=== PATIENT | female | born 1945 | race Caucasian/White ===

== ENCOUNTER 2021-05-17 19:19 | Observation (INO) | payer OTHER, SELFPAY ==
[~2021-05-17] VITALS: Ht 170.2 cm; Wt 95.3 kg
--- NOTE | 2021-05-17 21:30 | NUR ---
pt lying compfortable in bed.all vss. no high blood pressure at the moment. x2 side rails up for safety
[2021-05-17 21:32] VITALS: BP 120/45
[2021-05-17 22:02] LABS: BASOPHILS # (AUTO) 0.1 K/uL (0.00-0.22); BASOPHILS % (AUTO) 0.6 % (0.0-2.0); EOSINOPHILS # (AUTO) 0.3 K/uL (0-0.4); EOSINOPHILS % (AUTO) 2.7 % (0.0-4.0); HEMATOCRIT 29.3 % (36-48); HEMOGLOBIN 9.7 g/dL (12.0-16.0); LYMPHOCYTES # (AUTO) 1.6 K/uL (2.5-16.5); LYMPHOCYTES % (AUTO) 13.3 % (20.5-51.1); MEAN CORPUSCULAR HEMOGLOBIN 33 pg (27-31); MEAN CORPUSCULAR HGB CONC 33 g/dL (33-37); MEAN CORPUSCULAR VOLUME 100.3 fL (80-94); MONOCYTES # (AUTO) 1.1 K/uL (0.8-1.0); MONOCYTES % (AUTO) 9.4 % (1.7-9.3); NEUTROPHILS # (AUTO) 8.9 K/uL (1.8-7.7); PLATELET COUNT (AUTO) 418 K/uL (140-450); RED BLOOD CELL COUNT(AUTO) 2.92 MIL/uL (4.20-5.40); RED CELL DISTRIBUTION WIDTH 15.8 % (11.6-13.7)
--- NOTE | 2021-05-17 22:07 | NUR ---
given report to michael. kenney to continue care
[2021-05-17 22:25] LABS: ALBUMIN 3.5 g/dL (3.4-5.0); ANION GAP 20.9 (8-16); ASPARTATE AMINOTRANSFERASE 16 U/L (15-37); CARBON DIOXIDE 25.2 mmol/L (21-32); CHLORIDE 95 mmol/L (98-107); GLUCOSE 261 mg/dL (74-106); POTASSIUM 5.1 mmol/L (3.5-5.1); SODIUM SERUM 136 mmol/L (136-145); TOTAL BILIRUBIN 0.3 mg/dL (0.0-1.0)
[2021-05-17] MEDS ORDERED: HYDROcodone/APAP 5/325 MG 1 TAB TAB PO ONE (22:25)
--- NOTE | 2021-05-17 22:30 | NUR ---
PT BIBA FOER CLOGGED DIALYSIS SHUNT
[2021-05-17 22:36] LABS: CREATININE 7.8 mg/dL (0.6-1.3); UREA NITROGEN, BLOOD 78 mg/dL (7-18)
--- NOTE | 2021-05-18 00:23 | NUR ---
PT SLEEPING IN BED. 0/10 PAIN AT THIS TIME. EVEN CHEST RISE AND FALL. NO DISTRESS
--- NOTE | 2021-05-18 03:12 | NUR ---
PT SLEEPING IN BED. BOTH SIDE RAILS UP FOR SAFETY
--- NOTE | 2021-05-18 07:21 | NUR ---
ASSUMED CARE AT THIS TIME. PT MOVED TO ER BED 7, CONNECTED TO [facility]. PT DENIES PAIN AT THIS TIME. WILL CONTINUE TO MONITOR
[2021-05-18] MEDS ORDERED: MORPHINE SULFATE 4 MG/ML SYR IVP PRN (09:05)
[2021-05-18] MEDS ORDERED: KCL 20 MEQ/WATER INJ PREMIX 200 ML IV PRN (09:05)
[2021-05-18] MEDS ORDERED: MAGNESIUM OXIDE 400 MG TAB PO PRN (09:05)
[2021-05-18] MEDS ORDERED: ACETAMINOPHEN 325 MG TAB PO PRN (09:05)
[2021-05-18] MEDS ORDERED: MAG SULF 2000 MG/WATER PREMIX 50 ML IV PRN (09:05)
[2021-05-18] MEDS ORDERED: POTASSIUM CHLORIDE 10 MEQ TABER PO PRN (09:05)
[2021-05-18] MEDS ORDERED: SODIUM POLYSTYRENE 15 GM/60 ML UDBTL PO SCH (10:40)
--- NOTE | 2021-05-18 10:47 | NUR ---
PT RESTING COMFORTABLY IN BED. DENIES ANY COMPLAINTS AT THIS TIME. PT PROVIDED WITH BLANKET FOR COMFORT, WILL CONTINUE TO MONITOR
--- NOTE | 2021-05-18 11:47 | NUR ---
Report and continuation of care received from YASIR Dickinson
--- NOTE | 2021-05-18 11:47 | NUR ---
REPORT GIVEN TO BEN RN, TRANSFER OF CARE AT THIS TIME.
--- NOTE | 2021-05-18 12:33 | NUR ---
PATIENT HAS BEEN SCREENED AND CATEGORIZED MODERATE NUTRITION RISK. PATIENT WILL BE SEEN WITHIN 3-5 DAYS OF ADMISSION. [address]
--- NOTE | 2021-05-18 14:26 | NUR ---
Dr. Sanchez is evaluating pt at bedside
--- NOTE | 2021-05-18 14:30 | NUR ---
OR team at bedside for pt transport
[2021-05-18] MEDS ORDERED: BUPIVACAINE-MPF/EPI 0.25% 30 ML VIAL INJ ONE (14:35)
[2021-05-18] MEDS ORDERED: LIDOCAINE 1% 500 MG/50 ML VIAL ONE (14:35)
[2021-05-18] MEDS ORDERED: MIDAZOLAM 2 MG/2 ML VIAL ONE (15:08)
[2021-05-18] MEDS ORDERED: ceFAZolin 1,000 MG VIAL ONE (15:08)
[2021-05-18] MEDS ORDERED: fentaNYL citrate 0.05 MG/ML VIAL ONE (15:16)
[2021-05-18] MEDS ORDERED: METOCLOPRAMIDE 10 MG/2 ML INJ VIAL ONE (15:44)
[2021-05-18] MEDS ORDERED: ONDANSETRON 4 MG/2 ML VIAL ONE (15:44)
--- NOTE | 2021-05-18 17:25 | NUR ---
PATIENT REPORT RECEIVED FROM OR, PT BP 157/71 , HR 80 , 02% 97. PATIENT CALLED FAMILY AND UPDATED AT THIS TIME . ALL SAFETY MEASURES ARE IN PLACE. PATIENT ORIENTED TO ROOM , CALL LIGHT BED CONTROLS AND HOSPITAL POLICIES
--- NOTE | 2021-05-18 18:38 | NUR ---
PATIENT COMPLAINS OF HUNGER, MEAL TRAY PICKED UP FROM NUTRITION , PT ASSISTED WITH CUTTING FOOD TOLERATING WELL .
--- NOTE | 2021-05-18 19:16 | NUR ---
PATIENT CHANGED PATIENT HAD LARGE BM ,. PT TOLERATED WELL NO S/SX OF DISTRESS AT THIS TIDE. ALL SAFETY MEASURES ARE IN PLACE
--- NOTE | 2021-05-18 19:30 | NUR ---
BEDSIDE REPORT GIVEN TO ELECTRONIC ORGAN TECHNICIAN NURSE FOR CONTINUITY OF CARE. PATIENT IN STABLE CONDITION.
--- NOTE | 2021-05-18 19:31 | NUR ---
RECEIVED REPORT FORM MORNING SHIFT NURSE FOR CONTINUITY OF CARE. PATIENT IS STABLE IN BED. A&OX3. SW[place] SPEAKING ONLY. VERBALLY RESPONSIVE AND ABLE TO COMMUNICATE NEEDS. DENIES PAIN AT THIS TIME. BREATHING EVEN AND UNLABORED. ON ROOM AIR WITH NO APPARENT S/SX OF ACUTE DISTRESS. IV SITE TO THE 20G INTACT/PATENT SL. SKIN IS INTACT. PLAN OF CARE AND WHITE COMMUNICATION BOARD UPDATED. BED IN LOW/LOCKED POSITION. CALL LIGHT WITHIN REACH. WILL CONTINUE TO MONITOR.
[2021-05-18 20:00] VITALS: BP 135/71
--- NOTE | 2021-05-18 20:00 | NUR ---
Patient's Plan of Care was discussed and reviewed with FIELD ADMINISTRATOR: MIRNA HUANG
--- NOTE | 2021-05-18 21:30 | NUR ---
ADMINISTERED SCHEDULED MEDICATIONS PER MD ORDER. TOLERATED WELL. NO ADVERSE REACTION NOTED. PATIENT DENIES PAIN. RESPIRATIONS EVEN AND UNLABORED WITH NO APPARENT S/SX OF ACUTE DISTRESS. WHITE COMMUNICATION BOARD UPDATED. ALL SAFETY MEASURES IN PLACE. CALL LIGHT WITHIN REACH. ALL SAFETY MEASURES IN PLACE. CALL LIGHT WITHIN REACH.
--- NOTE | 2021-05-19 01:30 | NUR ---
ROUNDED ON PATIENT. STABLE AND ASLEEP WITH HOB ELEVATED AT 45 DEGREES. CHEST IS RISING AND FALLING. RESPIRATIONS EVEN AND UNLABORED WITH NO APPARENT S/SX OF ACUTE DISTRESS. WHITE COMMUNICATION BOARD UPDATED. ALL SAFETY MEASURES IN PLACE. CALL LIGHT WITHIN REACH. WILL CONTINUE TO MONITOR.
[2021-05-19 04:00] VITALS: BP 128/68
--- NOTE | 2021-05-19 07:10 | NUR ---
RECEIVED ENDORSEMENT FROM SEISMOGRAPH OBSERVER NURSE FOR CONTINUITY OF CARE.
--- NOTE | 2021-05-19 07:10 | NUR ---
ENDORSED PATIENT TO MORNING SHIFT NURSE FOR CONTINUITY OF CARE. PATIENT IS STABLE.
--- NOTE | 2021-05-19 08:15 | NUR ---
N AT BED SIDE AND CHECKED AND ASSESS PT.
[2021-05-19 08:18] LABS: ALBUMIN 3.5 g/dL (3.4-5.0); ASPARTATE AMINOTRANSFERASE 20 U/L (15-37); CARBON DIOXIDE 21.7 mmol/L (21-32); CHLORIDE 96 mmol/L (98-107); GLUCOSE 124 mg/dL (74-106); MAGNESIUM 2.6 mg/dL (1.8-2.4); POTASSIUM 5.7 mmol/L (3.5-5.1); SODIUM SERUM 137 mmol/L (136-145); TOTAL BILIRUBIN 0.3 mg/dL (0.0-1.0)
[2021-05-19 08:21] LABS: BASOPHILS # (AUTO) 0.1 K/uL (0.00-0.22); BASOPHILS % (AUTO) 0.7 % (0.0-2.0); EOSINOPHILS # (AUTO) 0.4 K/uL (0-0.4); EOSINOPHILS % (AUTO) 2.9 % (0.0-4.0); HEMATOCRIT 28.9 % (36-48); HEMOGLOBIN 9.6 g/dL (12.0-16.0); LYMPHOCYTES # (AUTO) 1.6 K/uL (2.5-16.5); MEAN CORPUSCULAR HEMOGLOBIN 33 pg (27-31); MEAN CORPUSCULAR HGB CONC 33 g/dL (33-37); MEAN CORPUSCULAR VOLUME 98.9 fL (80-94); MONOCYTES # (AUTO) 1.3 K/uL (0.8-1.0); MONOCYTES % (AUTO) 10.6 % (1.7-9.3); NEUTROPHILS # (AUTO) 9.1 K/uL (1.8-7.7); NEUTROPHILS % (AUTO) 72.8 % (42.2-75.2); PLATELET COUNT (AUTO) 477 K/uL (140-450); RED BLOOD CELL COUNT(AUTO) 2.92 MIL/uL (4.20-5.40); RED CELL DISTRIBUTION WIDTH 15.7 % (11.6-13.7); WHITE BLOOD COUNT (AUTO) 12.5 K/uL (4.8-10.8)
[2021-05-19] MEDS: DOCUSATE SODIUM 100 MG GELCAP PO SCH (08:38)
--- NOTE | 2021-05-19 08:42 | NUR ---
COMPLAIN OF PAIN MEDICATION.
[2021-05-19 09:38] LABS: CREATININE 9.7 mg/dL (0.6-1.3); UREA NITROGEN, BLOOD 97 mg/dL (7-18)
--- NOTE | 2021-05-19 09:40 | NUR ---
RECEIVED ABNORMAL LAB FOR BUN OF 97 AND CR AT 9.7 LEFT FMESSAGE TO .
[2021-05-19 12:00] VITALS: BP 156/81
--- NOTE | 2021-05-19 12:00 | NUR ---
PT ON BED STILL WITH DIALYSIS NURSE NO COMPLAIN OF ANY DISCOMFORT.
--- NOTE | 2021-05-19 13:23 | NUR ---
DIALYSIS NURSE AT BED SIDE PT. ALERT ON STABLE CONDITION.
--- NOTE | 2021-05-19 15:20 | NUR ---
PT ON BED WITH DIALYSIS NURSE AT BED SIDE. ON STABLE CONDITION.
--- NOTE | 2021-05-19 16:38 | NUR ---
DIALYSIS DONE DIALYZED WITH 2L. PT ON STABLE CONDITION NO COMPLAIN OF PAIN OR SANY DISCOMFORT.
[2021-05-19] MEDS: HYDROcodone/APAP 5/325 MG 1 TAB TAB PO PRN (18:37)
--- NOTE | 2021-05-19 18:43 | NUR ---
PT COMPLAIN OF PAIN MEDICATED ORDERED. DAUGHTER AT BED SIDE. PT. EATING DINNER TOLERATED WELL.
--- NOTE | 2021-05-19 19:15 | NUR ---
ENDORSE TO FLOOR ASSOCIATE NURSE FOR CONTINUITY OF CARE.
--- NOTE | 2021-05-19 19:16 | NUR ---
RECEIVED REPORT FORM MORNING SHIFT NURSE FOR CONTINUITY OF CARE. PATIENT IS STABLE IN BED. A&OX3. [place]ALIAN SPEAKING ONLY. VERBALLY RESPONSIVE AND ABLE TO COMMUNICATE NEEDS. DENIES PAIN AT THIS TIME. BREATHING EVEN AND UNLABORED. ON ROOM AIR WITH NO APPARENT S/SX OF ACUTE DISTRESS. IV SITE TO THE 20G INTACT/PATENT SL. SKIN IS INTACT. PLAN OF CARE AND WHITE COMMUNICATION BOARD UPDATED. BED IN LOW/LOCKED POSITION. CALL LIGHT WITHIN REACH. WILL CONTINUE TO MONITOR.
--- NOTE | 2021-05-19 19:45 | NUR ---
Patient's Plan of Care was discussed and reviewed with NATHAN HUANG.
[2021-05-19 20:00] VITALS: BP 148/79
--- NOTE | 2021-05-20 01:15 | NUR ---
ROUNDED ON PATIENT. STABLE AND ASLEEP WITH HOB ELEVATED AT 30 DEGREES. CHEST IS RISING AND FALLING. RESPIRATIONS EVEN AND UNLABORED WITH NO APPARENT S/SX OF ACUTE DISTRESS. WHITE COMMUNICATION BOARD UPDATED. ALL SAFETY MEASURES IN PLACE. CALL LIGHT WITHIN REACH. WILL CONTINUE TO MONITOR.
--- NOTE | 2021-05-20 03:15 | NUR ---
PATIENT AWOKE AND LOOKING FOR CELL PHONE. ASSISTED PATIENT. PATIENT COMPLAINED OF NECK PAIN 10/19. WILL MEDICATE PER PRN ORDER. RESPIRATIONS EVEN AND UNLABORED WITH NO APPARENT S/SX OF ACUTE DISTRESS. WHITE COMMUNICATION BOARD UPDATED. ALL SAFETY MEASURES IN PLACE. CALL LIGHT WITHIN REACH. WILL CONTINUE TO MONITOR.
[2021-05-20] MEDS: ONDANSETRON 4 MG/2 ML VIAL IVP PRN ×2 (03:17→15:26)
[2021-05-20] MEDS: HYDROcodone/APAP 5/325 MG 1 TAB TAB PO PRN ×2 (03:33→15:26)
[2021-05-20 04:00] VITALS: BP 138/81
--- NOTE | 2021-05-20 05:15 | NUR ---
CHECKED PATIENT. STABLE AND ASLEEP. CHEST IS RISING AND FALLING. RESPIRATIONS EVEN AND UNLABORED WITH NO APPARENT S/SX OF ACUTE DISTRESS. WHITE COMMUNICATION BOARD UPDATED. ALL SAFETY MEASURES IN PLACE. CALL LIGHT WITHIN REACH. WILL CONTINUE TO MONITOR.
[2021-05-20 07:17] LABS: BASOPHILS # (AUTO) 0.1 K/uL (0.00-0.22); BASOPHILS % (AUTO) 0.9 % (0.0-2.0); EOSINOPHILS # (AUTO) 0.3 K/uL (0-0.4); HEMATOCRIT 28.6 % (36-48); LYMPHOCYTES # (AUTO) 1.7 K/uL (2.5-16.5); RED BLOOD CELL COUNT(AUTO) 2.86 MIL/uL (4.20-5.40)
[2021-05-20 07:21] LABS: EOSINOPHILS % (AUTO) 2.8 % (0.0-4.0); HEMOGLOBIN 9.5 g/dL (12.0-16.0); LYMPHOCYTES % (AUTO) 15.3 % (20.5-51.1); MEAN CORPUSCULAR HEMOGLOBIN 33 pg (27-31); MEAN CORPUSCULAR HGB CONC 33 g/dL (33-37); MONOCYTES # (AUTO) 1.5 K/uL (0.8-1.0); MONOCYTES % (AUTO) 14.2 % (1.7-9.3); NEUTROPHILS # (AUTO) 7.3 K/uL (1.8-7.7); NEUTROPHILS % (AUTO) 66.8 % (42.2-75.2); PLATELET COUNT (AUTO) 444 K/uL (140-450); WHITE BLOOD COUNT (AUTO) 10.8 K/uL (4.8-10.8)
[2021-05-20 07:24] LABS: ALBUMIN 3.1 g/dL (3.4-5.0); ANION GAP 19.7 (8-16); ASPARTATE AMINOTRANSFERASE 17 U/L (15-37); CARBON DIOXIDE 24.5 mmol/L (21-32); CHLORIDE 97 mmol/L (98-107); GLUCOSE 207 mg/dL (74-106); MAGNESIUM 2.1 mg/dL (1.8-2.4); POTASSIUM 4.2 mmol/L (3.5-5.1); SODIUM SERUM 137 mmol/L (136-145); TOTAL BILIRUBIN 0.4 mg/dL (0.0-1.0); UREA NITROGEN, BLOOD 45 mg/dL (7-18)
--- NOTE | 2021-05-20 07:25 | NUR ---
ENDORSED PATIENT TO MORNING SHIFT NURSE FOR CONTINUITY OF CARE. PATIENT IS STABLE.
--- NOTE | 2021-05-20 07:40 | NUR ---
RECEIVED REPORT FROM MANAGER TRANSITION NURSE FOR CONTINUITY OF CARE. PATIENT IS STABLE IN BED. A&OX3. [place] SPEAKING ONLY. VERBALLY RESPONSIVE AND ABLE TO COMMUNICATE NEEDS. DENIES PAIN AT THIS TIME. BREATHING EVEN AND UNLABORED. ON ROOM AIR WITH NO APPARENT S/SX OF ACUTE DISTRESS. IV SITE INTACT/PATENT. SKIN IS INTACT. PLAN OF CARE AND WHITE COMMUNICATION BOARD UPDATED. BED IN LOW/LOCKED POSITION. CALL LIGHT WITHIN REACH. WILL CONTINUE TO MONITOR.
[2021-05-20 08:00] VITALS: BP 144/75
[2021-05-20 08:03] LABS: CREATININE 6.5 mg/dL (0.6-1.3)
[2021-05-20] MEDS: DOCUSATE SODIUM 100 MG GELCAP PO SCH (09:15)
--- NOTE | 2021-05-20 10:00 | NUR ---
ALL SCHEDULED MEDS GIVEN. PT IS STABLE. NO DISTRESS NOTED. WILL CONTINUE TO MONITOR.
--- NOTE | 2021-05-20 13:50 | NUR ---
CHANGED PATIENT AND KEPT DRY.
--- NOTE | 2021-05-20 15:26 | NUR ---
PT COMPLAINED OF 6/10 ABD PAIN AND NAUSEA. ADMINISTERED PRN MEDS PER MD ORDERED
[2021-05-20 16:00] VITALS: BP 135/76
--- NOTE | 2021-05-20 16:22 | NUR ---
spoke to Jeff at [facility] case coordinator and gave auth # for transportation to go back to [facility] bed 107B. Ath # [phone]
--- NOTE | 2021-05-20 17:40 | NUR ---
PATIENT NEEDED ASSISTING IN CLEANING AND CHANGING. KEPT CLEAN AND DRY. NO DISTRESS NOTED/
[2021-05-20] MEDS ORDERED: Z-GUARD PASTE TP ONE ×2 (17:52→18:05)
--- NOTE | 2021-05-20 19:05 | NUR ---
ENDORSED TO COMPOSING MACHINE OPERATOR/TENDER NURSE FOR CONTINUITY OF CARE. PT IS STABLE
--- NOTE | 2021-05-20 19:10 | NUR ---
RECEIVED REPORT FORM MORNING SHIFT NURSE FOR CONTINUITY OF CARE. PATIENT IS STABLE IN BED. A&OX3. [place]ENLAND[place] SPEAKING ONLY. VERBALLY RESPONSIVE AND ABLE TO COMMUNICATE NEEDS. DENIES PAIN AT THIS TIME. BREATHING EVEN AND UNLABORED. ON ROOM AIR WITH NO APPARENT S/SX OF ACUTE DISTRESS. IV SITE TO THE 20G INTACT/PATENT SL. SKIN IS INTACT. PLAN OF CARE AND WHITE COMMUNICATION BOARD UPDATED. BED IN LOW/LOCKED POSITION. CALL LIGHT WITHIN REACH. WILL CONTINUE TO MONITOR.
--- NOTE | 2021-05-20 21:10 | NUR ---
ADMINISTERED SCHEDULED MEDICATIONS PER MD ORDER. TOLERATED WELL. NO ADVERSE REACTION NOTED. DENIES PAIN. RESPIRATIONS EVEN AND UNLABORED WITH NO APPARENT S/SX OF ACUTE DISTRESS. PROVIDED SNACKS. WHITE COMMUNICATION BOARD UPDATED. ALL SAFETY MEASURES IN PLACE. CALL LIGHT WITHIN REACH. ALL SAFETY MEASURES IN PLACE. CALL LIGHT WITHIN REACH.
--- NOTE | 2021-05-20 22:00 | NUR ---
Patient's Plan of Care was discussed and reviewed with NURSERY HAND: MIRNA HUANG
[2021-05-21] MEDS: Z-GUARD PASTE TP SCH ×2 (01:00→09:35)
--- NOTE | 2021-05-21 01:10 | NUR ---
ANSWERED CALL LIGHT. PATIENT IS SOILED. CLEANED AND CHANGED PATIENT. TOLERATED WELL. DENIES PAIN. RESPIRATIONS EVEN AND UNLABORED WITH NO APPARENT S/SX OF ACUTE DISTRESS. WHITE COMMUNICATION BOARD UPDATED. ALL SAFETY MEASURES IN PLACE. CALL LIGHT WITHIN REACH. WILL CONTINUE TO MONITOR.
--- NOTE | 2021-05-21 03:10 | NUR ---
ANSWERED CALL LIGHT. PATIENT IS C/O NECK PAIN 10/19. WILL MEDICATE PER PRN ORDER. RESPIRATIONS EVEN AND UNLABORED WITH NO APPARENT S/SX OF ACUTE DISTRESS. PATIENT IS REQUESTING NEPRO SHAKE. WILL ENDORSE TO HOUSE SUP FOR SUPPLEMENT. RESPIRATIONS EVEN AND UNLABORED WITH NO APPARENT S/SX OF ACUTE DISTRESS. ALL SAFETY MEASURES IN PLACE. CALL LIGHT WITHIN REACH. WILL CONTINUE TO MONITOR.
[2021-05-21] MEDS: HYDROcodone/APAP 5/325 MG 1 TAB TAB PO PRN ×2 (03:11→14:48)
[2021-05-21 04:00] VITALS: BP 143/85
--- NOTE | 2021-05-21 05:10 | NUR ---
ROUNDED ON PATIENT. STABLE AND ASLEEP. CHEST IS RISING AND FALLING. RESPIRATIONS EVEN AND UNLABORED WITH NO APPARENT S/SX OF ACUTE DISTRESS. WHITE COMMUNICATION BOARD UPDATED. ALL SAFETY MEASURES IN PLACE. CALL LIGHT WITHIN REACH. WILL CONTINUE TO MONITOR.
--- NOTE | 2021-05-21 07:10 | NUR ---
ENDORSED PATIENT TO MORNING SHIFT NURSE FOR CONTINUITY OF CARE. PATIENT IS STABLE.
[2021-05-21 07:47] LABS: BASOPHILS # (AUTO) 0.1 K/uL (0.00-0.22); BASOPHILS % (AUTO) 0.6 % (0.0-2.0); EOSINOPHILS # (AUTO) 0.3 K/uL (0-0.4); HEMATOCRIT 28.7 % (36-48); HEMOGLOBIN 9.7 g/dL (12.0-16.0); LYMPHOCYTES # (AUTO) 1.4 K/uL (2.5-16.5); LYMPHOCYTES % (AUTO) 13.4 % (20.5-51.1); MEAN CORPUSCULAR HEMOGLOBIN 33 pg (27-31); MEAN CORPUSCULAR HGB CONC 34 g/dL (33-37); MEAN CORPUSCULAR VOLUME 98.9 fL (80-94); MONOCYTES # (AUTO) 1.4 K/uL (0.8-1.0); MONOCYTES % (AUTO) 13.7 % (1.7-9.3); NEUTROPHILS # (AUTO) 7.1 K/uL (1.8-7.7); NEUTROPHILS % (AUTO) 69.3 % (42.2-75.2); PLATELET COUNT (AUTO) 423 K/uL (140-450); RED CELL DISTRIBUTION WIDTH 15.8 % (11.6-13.7); WHITE BLOOD COUNT (AUTO) 10.3 K/uL (4.8-10.8)
[2021-05-21] MEDS: DOCUSATE SODIUM 100 MG GELCAP PO SCH (08:18)
--- NOTE | 2021-05-21 08:34 | NUR ---
SCHEDULED MEDICATIONS GIVEN PER MD ORDER. PT REFUSED COLACE PT EDUCATED, ALL SAFETY MEASURES ARE IN PLACE.
--- NOTE | 2021-05-21 10:35 | NUR ---
GAVE REPORT TO ZHENG MAYORGA , NURSE VERBALIZED UNDERSTANDING FOR CONTINUITY OF CARE.
--- NOTE | 2021-05-21 10:49 | NUR ---
DC PLANNING: DC ORDER TO RETURN TO [facility]. CM LEFT VM FOR BALDO IN ADMISSIONS ASKING FOR ROOM ASSIGNMENT AND ACCEPTING MD. DC PLANNING STARTED BY THE CONTOUR BAND SAW OPERATOR VERTICAL YESTERDAY, JACKELYN. CM CALLED [employer], ARRANGED FOR TRANSPORT TODAY, AUTO MOTOR MECHANIC TIME 12 PM. TRANSPORT ENDORSED TO PATIENTS RN, CM WILL FOLLOW FOR NEEDS.
[2021-05-21 11:27] LABS: ALBUMIN 3.3 g/dL (3.4-5.0); ANION GAP 24.1 (8-16); ASPARTATE AMINOTRANSFERASE 20 U/L (15-37); CARBON DIOXIDE 20.5 mmol/L (21-32); CHLORIDE 95 mmol/L (98-107); GLUCOSE 156 mg/dL (74-106); MAGNESIUM 2.5 mg/dL (1.8-2.4); POTASSIUM 4.6 mmol/L (3.5-5.1); SODIUM SERUM 135 mmol/L (136-145); TOTAL BILIRUBIN 0.4 mg/dL (0.0-1.0)
[2021-05-21 11:37] LABS: CREATININE 8.3 mg/dL (0.6-1.3); UREA NITROGEN, BLOOD 67 mg/dL (7-18)
--- NOTE | 2021-05-21 13:58 | NUR ---
DISCHARGE INSTRUCTIONS COMPLETE, PT VERBALIZED UNDERSTANDING , UNABLE TO SIGN DUE TO BLINDNESS ALL SAFETY MEASURES IN PLACE. DAUGHTER BRIELLE [phone] CALLED AND UPDATED WITH PLAN OF CARE
[2021-05-21] MEDS ORDERED: amLODIPine 5 MG TAB PO SCH (14:05)
[2021-05-21] MEDS: ONDANSETRON 4 MG/2 ML VIAL IVP PRN (14:40)
--- NOTE | 2021-05-21 15:44 | NUR ---
PT LEFT UNIT VIA JANNY PATIENT EXPRESSED GRATITUDE AND THANKFULNESS FOR CARE. ALL SAFETY MEASURES IN PLACE.
== END 2021-05-21 15:45 ==
LOC: MED 19:19 → MTU 05-18 09:03
PROVIDERS: ADMIT Hospitalist; ATTEND Hospitalist
DX: T82.818A Embolism due to vascular prosthetic devices, implants and grafts, initial encounter (principal); Z20.822 Contact with and (suspected) exposure to COVID-19; E87.5 Hyperkalemia; I12.0 Hypertensive chronic kidney disease with stage 5 chronic kidney disease or end stage renal disease; E11.22 Type 2 diabetes mellitus with diabetic chronic kidney disease; N18.6 End stage renal disease; D63.1 Anemia in chronic kidney disease; F03.90 Unspecified dementia, unspecified severity, without behavioral disturbance, psychotic disturbance, mood disturbance, and anxiety; M81.0 Age-related osteoporosis without current pathological fracture; E66.3 Overweight; Y83.2 Surgical operation with anastomosis, bypass or graft as the cause of abnormal reaction of the patient, or of later complication, without mention of misadventure at the time of the procedure; Z99.2 Dependence on renal dialysis; Z86.73 Personal history of transient ischemic attack (TIA), and cerebral infarction without residual deficits; Z79.899 Other long term (current) drug therapy
CPT/HCPCS: 36415; 36558; 71045; 76937; 77001; 80053; 83735; 84484; 85025; 87426; 93005; 93922; 93930; 93971; 96372; 96374; 96375; 96376; 99285; C1894; G0378; J0690; J1644; J2001; J2250; J2270; J2405; J2765; J3010; J3490; J7030; Q0092

== ENCOUNTER 2022-04-18 11:56 | Emergency (ER) | payer OTHER ==
[~2022-04-18] VITALS: Ht 154.9 cm; Wt 66.2 kg
[2022-04-18 11:57] VITALS: BP 132/106
--- NOTE | 2022-04-18 12:05 | NUR ---
DR ROGER AT BEDSIDE.
--- NOTE | 2022-04-18 12:15 | NUR ---
77 Y/O FM PT BIBA ALS RUN C/C GENERALIZED WEAKNESS DURING DIALYSIS 820CC OUT BECAME HYOTENSIVE AND PUT 600ML BACK IN. BS 130 PMH: DM, DIALYSIS
[2022-04-18 12:50] LABS: BASOPHILS % (AUTO) 0.6 % (0.0-2.0); EOSINOPHILS # (AUTO) 0.1 K/uL (0-0.4); EOSINOPHILS % (AUTO) 1.3 % (0.0-4.0); HEMATOCRIT 40.2 % (36-48); HEMOGLOBIN 13.3 g/dL (12.0-16.0); LYMPHOCYTES # (AUTO) 1.3 K/uL (2.5-16.5); LYMPHOCYTES % (AUTO) 18.8 % (20.5-51.1); MEAN CORPUSCULAR HEMOGLOBIN 34 pg (27-31); MEAN CORPUSCULAR HGB CONC 33 g/dL (33-37); MEAN CORPUSCULAR VOLUME 101.5 fL (80-94); MONOCYTES # (AUTO) 0.5 K/uL (0.8-1.0); MONOCYTES % (AUTO) 6.7 % (1.7-9.3); NEUTROPHILS # (AUTO) 5.1 K/uL (1.8-7.7); NEUTROPHILS % (AUTO) 72.6 % (42.2-75.2); PLATELET COUNT (AUTO) 330 K/uL (140-450); RED BLOOD CELL COUNT(AUTO) 3.97 MIL/uL (4.20-5.40); RED CELL DISTRIBUTION WIDTH 16.4 % (11.6-13.7)
[2022-04-18] MEDS ORDERED: NIFE60TE5 PO (13:00)
[2022-04-18] MEDS ORDERED: ONDA-188 PO (13:00)
[2022-04-18] MEDS ORDERED: TAMS0.4C97 PO (13:00)
[2022-04-18] MEDS ORDERED: SEVE800T25 PO (13:00)
[2022-04-18] MEDS ORDERED: LEVA0.6318 INH (13:00)
[2022-04-18] MEDS ORDERED: FAMO-90 PO (13:00)
[2022-04-18] MEDS ORDERED: ACET-10509 PO (13:00)
[2022-04-18] MEDS ORDERED: MID5 PO (13:00)
[2022-04-18] MEDS ORDERED: VITA1TAB44 PO (13:00)
[2022-04-18] MEDS ORDERED: CARV25TA PO (13:00)
[2022-04-18] MEDS ORDERED: TELM40TA1 PO (13:00)
[2022-04-18] MEDS ORDERED: HYDR-3233 PO (13:00)
[2022-04-18] MEDS ORDERED: FURO-570 PO (13:00)
[2022-04-18] MEDS ORDERED: ACET-2619 PO (13:00)
[2022-04-18 13:36] LABS: ALBUMIN 3.7 g/dL (3.4-5.0); ASPARTATE AMINOTRANSFERASE 16 U/L (15-37); CARBON DIOXIDE 25.6 mmol/L (21-32); CHLORIDE 96 mmol/L (98-107); GLUCOSE 129 mg/dL (74-106); POTASSIUM 3.6 mmol/L (3.5-5.1); SODIUM SERUM 139 mmol/L (136-145); TOTAL BILIRUBIN 0.3 mg/dL (0.0-1.0); UREA NITROGEN, BLOOD 36 mg/dL (7-18)
[2022-04-18 13:39] LABS: CREATININE 6.2 mg/dL (0.6-1.3)
[2022-04-18 15:03] VITALS: BP 225/99
--- NOTE | 2022-04-18 15:04 | NUR ---
Patient discharged with v/s stable. Written and verbal after care instructions given and explained. Patient verbalized understanding. Wheel Chair Assisted with by caregiver. All questions addressed prior to discharge. Advised to follow up with PMD.
== END 2022-04-18 15:00 | disposition home or self-care (01) ==
LOC: MED 11:56
DX: I95.89 Other hypotension (principal); Z20.822 Contact with and (suspected) exposure to COVID-19; N18.6 End stage renal disease; Z99.2 Dependence on renal dialysis; Z79.899 Other long term (current) drug therapy
CPT/HCPCS: 36415; 71045; 80053; 85025; 93005; 99285